=== PATIENT | female | born 1985 | race Caucasian/White ===

== ENCOUNTER → 2020-06-21 17:13 | Outpatient (BNVA) | payer OTHER, SELFPAY | PROVIDERS: Family Provider Family Medicine; Visit Provider Family Medicine | DX: Z20.828 Contact with and (suspected) exposure to other viral communicable diseases (principal) | CPT/HCPCS: 87635 ==

== ENCOUNTER 2022-06-28 14:53 | Emergency (ER) | payer OTHER, SELFPAY ==
[2022-06-28 14:56] VITALS: BP 152/70; PULSE 91; RESP 15; TEMP 36.6; O2SAT 97; BMI 31.2
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
[2022-06-28 16:05] VITALS: BP 128/60; PULSE 74; RESP 16; O2SAT 98
[2022-06-28 16:31] VITALS: BP 128/60; PULSE 74; RESP 16; O2SAT 98
== END 2022-06-28 16:33 | disposition home or self-care (01) ==
PROVIDERS: Emergency Provider Physician Assistant
DX: S13.4XXA Sprain of ligaments of cervical spine, initial encounter (principal); V49.49XA Driver injured in collision with other motor vehicles in traffic accident, initial encounter; Y92.410 Unspecified street and highway as the place of occurrence of the external cause
CPT/HCPCS: 72040; 99283